=== PATIENT | female | born 1960 | race Two or more races ===

== ENCOUNTER 2021-12-13 16:32 | Outpatient (REF) | payer BC, SELFPAY | END 2021-12-13 16:33 | disposition home or self-care (01) | LOC: HO.LAB 16:32 | PROVIDERS: Visit Provider Emergency Medicine | DX: R30.0 Dysuria (principal) | CPT/HCPCS: 87086 ==

== ENCOUNTER 2023-05-03 11:44 | Outpatient (AMB) | payer OTHER, SELFPAY ==
--- NOTE | 2023-05-03 12:02 | AM.OFFWIN_ITS ---
Intake Vital Signs 05/03/23 12:09 Weight 189 lb BP 124/84 Blood Pressure Location Rt brachial Position Sitting Pulse 85 Pulse Source Pulse Oximeter Pulse Oximetry (%) 98 Oxygen Delivery Method Room Air Intake Visit Reasons: EP RT neck swollen up to ear [id number] Intake Note: Pt is here today for Rt neck swollen and pain up to ear. Pt states also has a sore throat. Patient Tobacco Use Status: Never used Tobacco Allergies No Known Allergies Allergy (Verified 05/03/23 12:02) Do you need a note to return to daycare/school/sports/work: No HPI HPI Comments History of Present Illness Details 62 y/o female patient who presents to [facility] in clinic today with c/o URI symptoms that started yesterday. She has been using OTC remedies with some relief. [facility] Social History Patient Tobacco Use Status: Never used Tobacco Review of Systems Const All systems reviewed & are unremarkable except as noted in HPI and below Physical Exam Vital Signs: Last Vital Signs Pulse 85 05/03/23 12:09 BP 124/84 05/03/23 12:09 Pulse Ox 98 05/03/23 12:09 Oxygen Delivery Method Room Air 05/03/23 12:09 Const General: comfortable and no acute distress HEENT Head: Yes normocephalic and Yes atraumatic Ears: external ears normal and TM's normal bilaterally General nose exam: Abnormal mucous membranes and turbinates present boggy and erythematous and Nasal discharge present Face and sinus: Yes sinuses nontender Throat: Yes posterior oropharynx normal Resp Effort & Inspection: normal respiratory effort, able to speak in complete se ntences and Actively coughing Auscultation: clear to auscultation bilaterally, no crackles, no rales, no rhonchi and no wheezes Cardio Rate: regular rate Rhythm: regular rhythm Assessment & Plan Assessment & Plan (1) Upper respiratory infection: Code(s): J06.9 - Acute upper respiratory infection, unspecified Qualifiers: URI type: acute nasopharyngitis (common cold) Qualified Code(s): J00 - Acute nasopharyngitis [common cold] Plan: - Rest - Hydrate with [facility] fluids - OTC remedies. Orders: Orders SARS-CoV2/FLU/RSV Today J00 - Acute nasopharyngitis [common cold] Coding Level of Care Code Est Pt Level 3 (76923) Diagnoses Acute nasopharyngitis J00 URI type: acute nasopharyngitis (common cold) Time Spent (min) 15
[2023-05-03 12:09] VITALS: BP 124/84; PULSE 85; O2SAT 98
== END 2023-05-03 12:35 | disposition home or self-care (01) ==
PROVIDERS: Visit Provider Nurse Practitioner Family
DX: J00 Acute nasopharyngitis [common cold] (principal)
CPT/HCPCS: 99213

== ENCOUNTER 2023-05-03 12:20 | Outpatient (REF) | payer OTHER, SELFPAY ==
[2023-05-03 16:59] LABS: Influenza A PCR NEGATIVE (Negative); Influenza B PCR NEGATIVE (Negative); Resp Syncy Virus RNA Qual PCR NEGATIVE (Negative); SARS COV2 PCR INHOUSE NEGATIVE (Negative)
== END 2023-05-03 12:21 | disposition home or self-care (01) ==
LOC: HO.LAB 12:20
PROVIDERS: Visit Provider Nurse Practitioner Family
DX: Z11.52 Encounter for screening for COVID-19 (principal); Z20.822 Contact with and (suspected) exposure to COVID-19; J00 Acute nasopharyngitis [common cold]
CPT/HCPCS: 0241U